=== PATIENT | female | born 1985 | race Caucasian/White ===

== ENCOUNTER 2016-06-04 15:13 | Inpatient (IN) | payer MEDICAID ==
[2016-06-04] VITALS (12 sets, daily range): BP systolic 117–143; RESP 16–22; TEMP 98.3–98.9; Ht 157.5 cm; Wt 64.0 kg
[~2016-06-04] VITALS: Ht 157.5 cm; Wt 64.0 kg
[~2016-06-04 15:13] MED LIST: PHENYLEPHRINE 10 MG/ML VIAL IV ONE
[2016-06-04] MEDS ORDERED: LACT RINGERS 1,000 ML IV SCH ×2 (16:10→16:25)
[2016-06-04] MEDS ORDERED: METHYLERGONOVINE MAL 0.2 MG/ML AMP IM PRN (16:25)
[2016-06-04] MEDS ORDERED: CEFAZOLIN (LD/OB) 100 ML IV ONE (16:25)
[2016-06-04] MEDS ORDERED: METOCLOPRAMIDE 10 MG/2 ML VIAL IV PUSH ONE (16:25)
[2016-06-04] MEDS ORDERED: MISOPROSTOL 200 MCG TAB RECTAL PRN (16:25)
[2016-06-04] MEDS ORDERED: FAMOTIDINE 20 MG INJ IV ONE (16:25)
[2016-06-04] MEDS ORDERED: LIDOCAINE 1% BUFFERED 1 ML SYR INTRADERM PRN (16:25)
[2016-06-04] MEDS ORDERED: PROMETHAZINE 12.5 MG TAB PO PRN (16:30)
[2016-06-04] MEDS ORDERED: GUAIFENESIN 10 ML UDC PO PRN (16:30)
[2016-06-04] MEDS: AZITHROMYCIN 250 MG TAB PO SCH (16:37)
[2016-06-04] MEDS ORDERED: NALOXONE 0.4 MG/ML AMP IV PRN (17:00)
[2016-06-04] MEDS ORDERED: SALINE FLUSH 10 ML FLUSH PRN (17:00)
[2016-06-04] MEDS ORDERED: BUTORPHANOL 2 MG/ML VIAL IV PRN (17:00)
[2016-06-04] MEDS ORDERED: MORPHINE 2 MG/ML SYR IV PRN ×2 (17:00)
[2016-06-04] MEDS ORDERED: OXYCODONE 5 MG TAB PO PRN (17:00)
[2016-06-04] MEDS ORDERED: MEPERIDINE 25 MG/ML IV PRN (17:00)
[2016-06-04] MEDS ORDERED: MORPHINE 4 MG/ML SYR IV PRN ×2 (17:00)
[2016-06-04] MEDS ORDERED: ONDANSETRON 4 MG VIAL IV PRN ×3 (17:00→17:55)
[2016-06-04] MEDS ORDERED: DILAUDID 1 MG/ML AMP IV PRN (17:00)
[2016-06-04] MEDS ORDERED: DIPHENHYDRAMINE 50 MG/ML VIAL IV PRN (17:00)
[2016-06-04] MEDS ORDERED: PROMETHAZINE 25 MG/ML VIAL IV PRN (17:00)
[2016-06-04] MEDS ORDERED: MEASLES,MUMPS,RUBELLA VAC SUBQ.VACC ONE (17:55)
[2016-06-04] MEDS ORDERED: TDaP 0.5 ML VIAL IM.VACC ONE (17:55)
[2016-06-04] MEDS ORDERED: OXYTOCIN 15 UNITS/250 ML NS 250 ML IV SCH (17:55)
[2016-06-04] MEDS: KETOROLAC 30 MG/ML VIAL IV SCH ×2 (18:30→23:17)
[2016-06-04] MEDS: LACT RINGERS 1,000 ML IV SCH ×2 (18:57→20:54)
[2016-06-04] MEDS: SALINE FLUSH 10 ML FLUSH SCH (19:41)
[2016-06-04] MEDS: GUAIFENESIN 10 ML UDC PO PRN (23:16)
[2016-06-05] VITALS (8 sets, daily range): BP systolic 114–133; RESP 16–18; TEMP 97.6–101.4
[2016-06-05] MEDS: LACT RINGERS 1,000 ML IV SCH (02:50)
[2016-06-05] MEDS: KETOROLAC 30 MG/ML VIAL IV SCH ×2 (05:31→11:51)
[2016-06-05] MEDS: SODIUM CHLORIDE 0.9% FLUSH BAG 500 ML IV SCH (06:00)
[2016-06-05] MEDS: GUAIFENESIN 10 ML UDC PO PRN ×3 (06:44→17:44)
[2016-06-05] MEDS: DOCUSATE SOD 100 MG CAP PO SCH (09:15)
[2016-06-05] MEDS: AZITHROMYCIN 250 MG TAB PO SCH (09:15)
[2016-06-05] MEDS: MAG HYDROX 30 ML UDC PO PRN (09:21)
[2016-06-05] MEDS: SALINE FLUSH 10 ML FLUSH SCH ×2 (12:03→20:00)
[2016-06-05] MEDS ORDERED: ACETAMINOPHEN 325 MG TAB PO ONE ×2 (16:40)
[2016-06-05] MEDS: NEB-ALBUTEROL 2.5 MG/3 ML INH SCH ×3 (17:45→22:29)
[2016-06-05] MEDS: OXYCODONE/APAP 5/325 TAB PO PRN ×3 (18:29→23:17)
[2016-06-05] MEDS ORDERED: ACETAMINOPHEN 325 MG TAB PO PRN (18:50)
[2016-06-05] MEDS: AMP/SULBACTAM 3 GM in SODIUM CHLORIDE 0.9% 100 ML IV SCH ×2 (19:26→23:17)
[2016-06-06] MEDS: Ibuprofen 800 MG TAB PO SCH ×4 (00:10→23:12)
[2016-06-06] MEDS: GUAIFENESIN 10 ML UDC PO PRN ×4 (00:20→20:45)
[2016-06-06] MEDS: NEB-ALBUTEROL 2.5 MG/3 ML INH SCH ×6 (02:32→23:05)
[2016-06-06 05:39] VITALS: BP_SYST 127; RESP 16; TEMP 97.9
[2016-06-06] MEDS: SODIUM CHLORIDE 0.9% FLUSH BAG 500 ML IV SCH (06:03)
[2016-06-06] MEDS: AMP/SULBACTAM 3 GM in SODIUM CHLORIDE 0.9% 100 ML IV SCH ×2 (06:33→12:05)
[2016-06-06] MEDS: OXYCODONE/APAP 5/325 TAB PO PRN ×3 (06:35→20:41)
[2016-06-06] MEDS: DOCUSATE SOD 100 MG CAP PO SCH (08:41)
[2016-06-06] MEDS: ONDANSETRON 4 MG TAB PO PRN (08:41)
[2016-06-06 08:46] VITALS: BP_SYST 106; RESP 16; TEMP 98.1
[2016-06-06] MEDS: AZITHROMYCIN 250 MG TAB PO SCH (09:37)
[2016-06-06] MEDS: MAG HYDROX 30 ML UDC PO PRN (12:04)
[2016-06-06 13:25] VITALS: BP_SYST 124; RESP 16; TEMP 97.7
[2016-06-06 17:12] VITALS: BP_SYST 124; TEMP 98.3
[2016-06-06 17:13] VITALS: RESP 18
[2016-06-06 22:44] VITALS: BP_SYST 126; RESP 20; TEMP 97.2
[2016-06-07 01:18] VITALS: BP_SYST 117; RESP 20; TEMP 97.6
[2016-06-07] MEDS: NEB-ALBUTEROL 2.5 MG/3 ML INH SCH ×3 (03:00→11:00)
[2016-06-07 05:18] VITALS: BP_SYST 121; RESP 20; TEMP 97.8
[2016-06-07] MEDS: Ibuprofen 800 MG TAB PO SCH (08:31)
[2016-06-07] MEDS: GUAIFENESIN 10 ML UDC PO PRN (08:34)
[2016-06-07] MEDS: DOCUSATE SOD 100 MG CAP PO SCH (08:34)
[2016-06-07] MEDS: AZITHROMYCIN 250 MG TAB PO SCH (08:34)
[2016-06-07] MEDS: ONDANSETRON 4 MG TAB PO PRN (08:37)
[2016-06-07 09:16] VITALS: BP_SYST 132; RESP 18; TEMP 98.5
[2016-06-07 10:55] VITALS: BP_SYST 132; RESP 18; TEMP 98.5
== END 2016-06-07 12:36 | disposition home or self-care (01) | DRG 765 ==
LOC: LDOP 15:13 → LD 15:44 → OB 20:30
PROVIDERS: ADMIT Obstetrics & Gynecology; ATTEND Obstetrics & Gynecology
PROC: 10D00Z1 Extraction of Products of Conception, Low, Open Approach (ICD-10-PCS; principal; 2016-06-04)
DX: O34.211 Maternal care for low transverse scar from previous cesarean delivery (principal); O75.3 Other infection during labor; N85.8 Other specified noninflammatory disorders of uterus; O99.334 Smoking (tobacco) complicating childbirth; F17.200 Nicotine dependence, unspecified, uncomplicated; O99.824 Streptococcus B carrier state complicating childbirth; Z3A.37 37 weeks gestation of pregnancy; Z37.0 Single live birth; O75.89 Other specified complications of labor and delivery; J40 Bronchitis, not specified as acute or chronic; N71.9 Inflammatory disease of uterus, unspecified; O99.89 Other specified diseases and conditions complicating pregnancy, childbirth and the puerperium; N73.6 Female pelvic peritoneal adhesions (postinfective)
CPT/HCPCS: 71010; 82803; 85025; 86850; 86900; 86901; 87040; 87088; 94640; 94799